=== PATIENT | female | born 1965 | race Caucasian/White ===

== ENCOUNTER 2019-04-29 07:43 | Emergency (ER) | payer OTHER, BC ==
[2019-04-29] MEDS ORDERED: Lidocaine 1% 20 ML MDV INFILT ONE (07:44)
[2019-04-29] MEDS ORDERED: Diphtheria,Pertussis(Acell),Tetanus Vaccine 0.5 ML SDV IM ONE (08:15)
--- NOTE | 2019-04-29 08:15 | EDM.PDOC ---
ED HPI GENERAL MEDICAL PROBLEM - General Chief Complaint: Laceration Stated Complaint: LACERATION ON RT LOWER LEG Time Seen by Provider: 04/29/19 08:10 Source of Information: Reports: Patient History Limitations: Reports: No Limitations - History of Present Illness INITIAL COMMENTS - FREE TEXT/NARRATIVE: 53-year-old female who was working at the [employer] and was walking by right lower leg against a piece of metal that was hanging out and sustained a laceration to her right anterior lower leg. This occurred approximately 7:25 AM. The bleeding is being controlled with direct pressure. There were no other injuries. She reports a mild stinging pain that she rates as a 2/10. It does not radiate. It is worse with palpation and with movement. She has normal sensation to her toes. There are no other associated signs or symptoms. There are no other modifying factors. 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: Reports: Other (see below) (Nothing) Right lower leg Pain Score (Numeric/FACES): 2 - Related Data Allergies Allergy/AdvReac Type Severity Reaction Status Date / Time MOMO Inhibitors Allergy Anxiety Verified 04/29/19 08:23 ammonium chloride Allergy Airway Verified 04/29/19 08:23 Tightness naproxen sodium [From Aleve] Allergy Other Verified 04/29/19 08:23 Sulfa (Sulfonamide Allergy Joint Pain Verified 04/29/19 08:23 Antibiotics) Home Meds: Home Meds Acetaminophen [Tylenol] 0.5 tab PO ASDIRECTED PRN 04/29/19 [History] Celecoxib 200 mg PO BID 04/29/19 [History] Chlorpheniramine Maleate 4 mg PO ASDIRECTED PRN 04/29/19 [History] Cranberry Fruit Concentrate [Azo Cranberry] 1 tab PO MOWEFR 04/29/19 [History] Fexofenadine [Ibis] 180 mg PO BID PRN 04/29/19 [History] Folic Acid 1 mg PO DAILY 04/29/19 [History] Metoprolol Succinate 25 mg PO DAILY 04/29/19 [History] PARoxetine [Paxil] 10 mg PO BID 04/29/19 [History] Potassium Chloride 10 meq PO DAILY 04/29/19 [History] Simvastatin 10 mg PO DAILY 04/29/19 [History] clonazePAM [Clonazepam] 0.5 mg PO BID PRN 04/29/19 [History] hydroCHLOROthiazide [Hydrochlorothiazide] 25 mg PO DAILY 04/29/19 [History] Past Medical History Musculoskeletal History: Reports: 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) Other Musculoskeletal History: right knee pain - Past Surgical History Female Surgical History: Reports: Hysterectomy Musculoskeletal Surgical History: Reports: Other (See Below) (Achilles tendon repair on right side and heel spur surgery on her right side) Social & Family History - Tobacco Use Smoking Status *Q: Never Smoker Second Hand Smoke Exposure: No - Caffeine Use Caffeine Use: Reports: Soda - Alcohol Use Alcohol Use History: No - Recreational Drug Use Recreational Drug Use: No - Living Situation & Occupation Occupation: Employed ([employer]) ED ROS GENERAL - Review of Systems Review Of Systems: See Below Constitutional: Reports: No Symptoms HEENT: Reports: Rhinitis, Other (Allergy type symptoms with nasal congestion) Respiratory: Reports: No Symptoms Cardiovascular: Reports: No Symptoms Endocrine: Reports: No Symptoms GI/Abdominal: Reports: No Symptoms : Reports: No Symptoms Musculoskeletal: Reports: Leg Pain (Right anterior) Skin: Reports: Wound (Laceration right anterior leg) Neurological: Reports: No Symptoms Hematologic/Lymphatic: Reports: No Symptoms Immunologic: Reports: Other (Last tetanus immunization was in 2009 so she is not up-to-date.) ED EXAM, SKIN/RASH Exam: See Below Exam Limited By: No Limitations General Appearance: Alert, No Apparent Distress, Obese Eye Exam: Bilateral Eye: EOMI, Normal Inspection, PERRL Ears: Normal External Exam, Hearing Grossly Normal Nose: Normal Inspection, Normal Mucosa, No Blood Throat/Mouth: Normal Inspection, Normal Lips, Normal Oropharynx, Normal Voice, No Airway Compromise Head: Atraumatic, Normocephalic Neck: Normal Inspection, Supple, Non-Tender, Full Range of Motion Respiratory/Chest: No Respiratory Distress, Lungs Clear, Normal Breath Sounds, No Accessory Muscle Use, Chest Non-Tender Cardiovascular: Normal Peripheral Pulses, Regular Rate, Rhythm, No JVD Peripheral Pulses: 2+: Radial (L), Radial (R), Dorsalis Pedis (L), Dorsalis Pedis (R) GI/Abdominal: Normal Bowel Sounds, Soft, Non-Tender, No Mass Back Exam: Normal Inspection, Full Range of Motion, NT Extremities: Normal Range of Motion, Non-Tender, No Pedal Edema, Normal Capillary Refill Neurological: Alert, Oriented, CN II-XII Intact, Normal Cognition, No Motor/ Sensory Deficits Skin: Warm, Dry, Normal Color, No Rash, Wound/Incision (Laceration to right lower leg) Location, Skin: Lower Extremity, Right (Anterior) Characteristics: Linear (Down to subcutaneous tissue. It is 7 cm in length.) ED SKIN PROCEDURES - Laceration/Wound Repair Right Anterior Distal Leg Appearance: Subcutaneous Distal NVT: Neuro & Vascular Intact Anesthetic Type: Local Local Anesthesia - Lidocaine (Xylocaine): 1% Plain Local Anesthetic Volume: Other (8 mL. Good anesthesia and no complications.) Skin Prep: Saline Saline Irrigation (cc's): 600 Exploration/Debridement/Repair: Wound Explored, No Foreign Material Found Closed with: Sutures Lac/Wound length In cm: 7 Suture Size: 4-0 # of Sutures: 7 Suture Type: Nylon Drain Placement: No Sterile Dressing Applied: Nurse Tetanus Status Addressed: Yes Complications: No Course - Vital Signs Last Recorded V/S: Last Vital Signs Temp 36.4 C 04/29/19 07:45 Pulse 94 04/29/19 07:57 Resp 18 04/29/19 07:45 BP 154/89 H 04/29/19 07:57 Pulse Ox 96 04/29/19 07:45 - Orders/Labs/Meds Orders: Active Orders 24 hr Category Date Time Status Vaccines to be Administered [RC] PER UNIT ROUTINE Care 04/29/19 08:15 Ordered Bacitracin [Bacitracin Oint 1 GM] Med 04/29/19 08:50 Once 1 dose TOP ONETIME ONE Meds: Medications Discontinued Medications Generic Name Dose Route Start Last Admin Trade Name Freq PRN Reason Stop Dose Admin Diphtheria/Tetanus/Acell Pertussis 0.5 ml 04/29/19 08:15 Adacel IM 04/29/19 08:16 .ONCE ONE - Re-Assessments/Exams Free Text/Narrative Re-Assessment/Exam: 04/29/19 08:55: Right anterior lower leg wound was repaired using 4-0 nylon sutures area a supportive dressing with an Momo wrap is applied to the down to the toes on the right. Wound care instructions were given. Departure - Departure Time of Disposition: 09:05 Disposition: Home, Self-Care 01 Condition: Good Clinical Impression: Contusion of right lower leg, initial encounter Laceration of right lower leg Qualifiers: Encounter type: initial encounter Qualified Code(s): S81.811A - Laceration without foreign body, right lower leg, initial encounter - Discharge Information Instructions: Laceration Care, Adult, [id number], Stitches, [place], or Adhesive Wound Closure, [id number], Contusion, [id number] Referrals: Tari Funez NP [Primary Care Provider] - Forms: ED Department Discharge Additional Instructions: Do not get the wound wet for 3 days. After 3 days, you may get the wound wet but do not immerse the wound in water until the sutures are out. Suture removal in 10 days. Try to stay off of your right leg and keep it elevated for the next few days. Use the Momo wrap for the next few days for support and compression. Back to the emergency department for marked increase in pain, redness, increased swelling or any other concerning sign or symptom. You were given a Tdap immunization today to bring your tetanus immunization status up-to-date Sepsis Event Note - Evaluation Sepsis Screening Result: No Definite Risk - Focused Exam Vital Signs: Vital Signs Temp Pulse Resp BP Pulse Ox 04/29/19 07:57 94 154/89 H 04/29/19 07:45 36.4 C 86 18 179/89 H 96 Date Exam was Performed: 04/29/19 Time Exam was Performed: 08:51 - My Orders Last 24 Hours: My Active Orders 04/29/19 08:15 Vaccines to be Administered [RC] PER UNIT ROUTINE 04/29/19 08:50 Bacitracin [Bacitracin Oint 1 GM] 1 dose TOP ONETIME ONE - Assessment/Plan Last 24 Hours: My Active Orders 04/29/19 08:15 Vaccines to be Administered [RC] PER UNIT ROUTINE 04/29/19 08:50 Bacitracin [Bacitracin Oint 1 GM] 1 dose TOP ONETIME ONE
[2019-04-29] MEDS ORDERED: Bacitracin Oint 1 GM U/D Packet TOP ONE (08:50)
[2019-04-29 10:05] VITALS: BP 148/71; PULSE 74
== END 2019-04-29 10:10 | disposition home or self-care (01) ==
LOC: FB.ED 07:43
DX: S81.811A Laceration without foreign body, right lower leg, initial encounter (principal); Z88.2 Allergy status to sulfonamides; Z88.6 Allergy status to analgesic agent; Z88.8 Allergy status to other drugs, medicaments and biological substances; W22.8XXA Striking against or struck by other objects, initial encounter; Y92.830 Public park as the place of occurrence of the external cause
CPT/HCPCS: 12002; 90471; 90715; 99000; 99282; J2001

== ENCOUNTER 2021-04-26 11:07 | Emergency (ER) | payer BC, OTHER ==
[2021-04-26 11:30] VITALS: BP 195/93; PULSE 66
[2021-04-26 13:49] LABS: CORONAVIRUS COVID-19 NAA NEGATIVE (NEGATIVE)
== END 2021-04-26 15:10 | disposition home or self-care (01) ==
LOC: FB.ED 11:07
DX: T83.511A Infection and inflammatory reaction due to indwelling urethral catheter, initial encounter (principal); R20.0 Anesthesia of skin; E78.00 Pure hypercholesterolemia, unspecified; I10 Essential (primary) hypertension; I25.2 Old myocardial infarction; R73.9 Hyperglycemia, unspecified; R94.31 Abnormal electrocardiogram [ECG] [EKG]; E66.9 Obesity, unspecified; Z68.36 Body mass index [BMI] 36.0-36.9, adult; Z88.2 Allergy status to sulfonamides; Z88.5 Allergy status to narcotic agent; Z88.8 Allergy status to other drugs, medicaments and biological substances; Z79.899 Other long term (current) drug therapy; Z20.822 Contact with and (suspected) exposure to COVID-19
CPT/HCPCS: 0240U; 36415; 70450; 71046; 80053; 81001; 83735; 83880; 84443; 84484; 85025; 85379; 86140; 87086; 93005; 93010; 99284-25; 99285